=== PATIENT | female | born 1950 | race Caucasian/White ===

== ENCOUNTER 2021-01-22 18:19 | Inpatient (IN) | payer MEDICARE, SELFPAY ==
[2021-01-22] MEDS ORDERED: Ventolin HFA Inhaler 60 PUFF INHALER ONE (18:48)
[2021-01-22 19:14] LABS: #Monocytes 1.2 10x3/uL (0.0-1.1); #Neutrophils 11.1 10x3/uL (1.5-8.4); %Basophils 0.3 % (0.0-2.0); %Eosinophils 0.1 % (0.0-6.0); %Lymphocytes 3.8 % (18.0-47.0); %Monocytes 9.6 % (0.0-10.0); %Neutrophils 85.2 % (40.0-75.0); Hemoglobin 10.6 g/dL (12.0-15.5); Mean Corpuscular Hemoglobin 30.5 pg (27.0-33.0); Mean Corpuscular Volume 87.1 fl (81.6-98.3); Mean Platelet Volume 10.9 fl (7.4-10.4); Platelet Count 200 10x3/uL (150-450); RBC Distribution Width 12.3 % (11.5-14.5); Red Blood Cell (RBC) Count 3.48 10x6/uL (3.90-5.03)
[2021-01-22 19:24] LABS: ALT (SGPT) 17 U/L (8-55); AST (SGOT) 13 U/L (5-34); Albumin 3.4 g/dL (3.4-4.8); Alkaline Phosphatase 78 U/L (40-110); Anion Gap 17 mmol/L (10-20); BUN (Urea Nitrogen) 21 mg/dL (9.8-20.1); Bilirubin, Total 0.4 mg/dL (0.2-1.2); Calc. Creatinine Clearance 0 mL/min (70-130); Calcium 9.4 mg/dL (7.8-10.44); Carbon Dioxide 21 mmol/L (23-31); Chloride 96 mmol/L (98-107); Globulin 3.8 g/dL (2.4-3.5); Glucose 519 mg/dL (80-115); Potassium 4.6 mmol/L (3.5-5.1); Protein, Total 7.2 g/dL (5.8-8.1); Sodium 129 mmol/L (136-145)
[2021-01-22] MEDS ORDERED: Ketorolac Tromethamine 30 MG/ML VIAL ONE (19:55)
[2021-01-22] MEDS ORDERED: Ondansetron PF 4 MG/2 ML Vial ONE (19:56)
[2021-01-22] MEDS ORDERED: Insulin Regular 300 UNITS/3 ML VIAL ONE (20:24)
[2021-01-22 20:28] LABS: Bilirubin Neg (Negative); Blood, Urine 50 (Negative); Clarity Cloudy (Clear); Glucose, Urine (Dipstick) >=1000 mg/dL (Negative); Ketone, Urine 15 mg/dL (Negative); Leukocyte 100 (Negative); Nitrite Negative (Negative); Protein, Urine (Dipstick) 30 mg/dl (Neg-Trace); Urobilinogen Normal mg/dL (Less than 2)
[2021-01-22 20:32] LABS: Critical Notified Time 2025; Critical Notified Whom: MD; Puncture Site Other Site; pH (venous) 7.48 (7.32-7.43)
[2021-01-22 20:33] LABS: Actual Bicarbonate (HCO3v) 24 mEq/L (22-28); Base Excess 0.8 mEq/L (-2.0 to +3.0)
[2021-01-22 20:34] LABS: Calcium, Ionized (venous) 1.07 mmol/L (1.16-1.32); Chloride (VBG) 97 mmol/L (98-106); Potassium (VBG) 4.46 mmol/L (3.70-5.30); RapidComm Collect By LAB; Sodium 129.6 mmol/L (133-146)
[2021-01-22 20:44] LABS: Bacteria/HPF 3+ HPF (None Seen); Squamous Epithelial 0-3 HPF (0-3); WBC/HPF Greater Than 50 HPF (0-3)
[2021-01-22] MEDS ORDERED: Dextrose 5% in Water 1,000 ML IV PRN (21:11)
[2021-01-22] MEDS ORDERED: Dextrose 50% Abboject 50 ML SYRINGE SLOW IVP PRN (21:11)
[2021-01-22] MEDS ORDERED: cefTRIAXone\\ROCEPHIN 1 GM VIAL ONE (21:12)
[2021-01-22] MEDS ORDERED: hydrALAZINE 20 MG/ML VIAL SLOW IVP PRN (21:15)
[2021-01-22] MEDS ORDERED: Sodium Chloride 0.9% 1,000 ML IV SCH (21:15)
[2021-01-22 22:08] LABS: Anion Gap 15 mmol/L (10-20); BUN (Urea Nitrogen) 20 mg/dL (9.8-20.1); Calc. Creatinine Clearance 0 mL/min (70-130); Carbon Dioxide 20 mmol/L (23-31); Chloride 100 mmol/L (98-107); Glucose 436 mg/dL (80-115); Lipase 20 U/L (8-78); Potassium 4.1 mmol/L (3.5-5.1); Sodium 131 mmol/L (136-145)
[2021-01-22 22:59] LABS: SARS-CoV-2 NAA Rapid Test Not Detected (NotDetected)
[2021-01-22] MEDS ORDERED: Lantus 1000 UNITS/10 ML VIAL SC SCH (23:59)
[2021-01-23 00:34] VITALS: BMI 27.4
[2021-01-23] MEDS ORDERED: Ondansetron PF 4 MG/2 ML Vial ONE (01:08)
[2021-01-23] MEDS: Ondansetron PF 4 MG/2 ML Vial IVP PRN ×2 (01:10→10:29)
[2021-01-23 05:31] LABS: ALT (SGPT) 13 U/L (8-55); AST (SGOT) 13 U/L (5-34); Albumin 3.2 g/dL (3.4-4.8); Alkaline Phosphatase 71 U/L (40-110); Anion Gap 13 mmol/L (10-20); BUN (Urea Nitrogen) 15 mg/dL (9.8-20.1); Bilirubin, Total 0.3 mg/dL (0.2-1.2); Calc. Creatinine Clearance 55 mL/min (70-130); Calcium 9.1 mg/dL (7.8-10.44); Carbon Dioxide 20 mmol/L (23-31); Chloride 103 mmol/L (98-107); Globulin 3.6 g/dL (2.4-3.5); Glucose 275 mg/dL (80-115); Magnesium 1.6 mg/dL (1.6-2.6); Potassium 4.2 mmol/L (3.5-5.1); Protein, Total 6.8 g/dL (5.8-8.1); Sodium 132 mmol/L (136-145)
[2021-01-23] MEDS ORDERED: Levothyroxine Sodium 75 MCG TAB PO SCH (06:00)
[2021-01-23 06:17] LABS: #Monocytes 0.9 10x3/uL (0.0-1.1); #Neutrophils 9.1 10x3/uL (1.5-8.4); %Basophils 0.3 % (0.0-2.0); %Eosinophils 0.2 % (0.0-6.0); %Lymphocytes 5.9 % (18.0-47.0); %Monocytes 8.2 % (0.0-10.0); %Neutrophils 84.4 % (40.0-75.0); Hemoglobin 10.4 g/dL (12.0-15.5); Mean Corpuscular HGB CONC 34.2 g/dL (32.0-36.0); Mean Corpuscular Hemoglobin 30.2 pg (27.0-33.0); Mean Corpuscular Volume 88.4 fl (81.6-98.3); Mean Platelet Volume 10.8 fl (7.4-10.4); Platelet Count 201 10x3/uL (150-450); RBC Distribution Width 12.4 % (11.5-14.5); Red Blood Cell (RBC) Count 3.44 10x6/uL (3.90-5.03); White Blood Cell (WBC) Count 10.7 10x3/uL (3.5-10.5)
[2021-01-23 06:19] LABS: MDiff Complete? YES; Platelet Morphology Comment Appears Adequate; RBC Morphology Normal
[2021-01-23] MEDS: Enoxaparin Sodium 40 MG/0.4 ML SYRINGE SC SCH (10:23)
[2021-01-23] MEDS: Carvedilol 12.5 MG TAB PO SCH (10:24)
[2021-01-23] MEDS: Sodium Chloride 0.9% 1,000 ML IV SCH ×3 (10:24→21:43)
[2021-01-23] MEDS: Lantus 1000 UNITS/10 ML VIAL SC SCH ×2 (10:25→21:45)
[2021-01-23] MEDS: Aspirin 81 mg Enteric Coated Tablet PO SCH (10:25)
[2021-01-23 11:39] LABS: Hemoglobin A1c 7.8 % (4.0-6.0)
[2021-01-23] MEDS: HumaLOG 300 UNITS/3 ML VIAL SC PRN ×2 (11:41→19:19)
[2021-01-23 20:16] LABS: #Monocytes 0.7 10x3/uL (0.0-1.1); #Neutrophils 7.9 10x3/uL (1.5-8.4); %Basophils 0.2 % (0.0-2.0); %Eosinophils 0.4 % (0.0-6.0); %Lymphocytes 6.7 % (18.0-47.0); %Monocytes 7.4 % (0.0-10.0); %Neutrophils 84.6 % (40.0-75.0); Hemoglobin 9.3 g/dL (12.0-15.5); Mean Corpuscular HGB CONC 34.2 g/dL (32.0-36.0); Mean Corpuscular Hemoglobin 30.5 pg (27.0-33.0); Mean Corpuscular Volume 89.2 fl (81.6-98.3); Mean Platelet Volume 10.6 fl (7.4-10.4); Platelet Count 187 10x3/uL (150-450); RBC Distribution Width 12.3 % (11.5-14.5); Red Blood Cell (RBC) Count 3.05 10x6/uL (3.90-5.03); White Blood Cell (WBC) Count 9.3 10x3/uL (3.5-10.5)
[2021-01-23] MEDS ORDERED: Atorvastatin Calcium 20 MG TAB PO SCH (21:00)
[2021-01-23] MEDS: carBAMazepine 200 MG TAB PO SCH (21:44)
[2021-01-23] MEDS: Ondansetron ODT 4 MG TAB PO PRN (21:44)
[2021-01-24] MEDS: Acetaminophen 325 MG TAB PO PRN ×2 (01:55→16:47)
[2021-01-24 05:08] LABS: #Monocytes 0.6 10x3/uL (0.0-1.1); #Neutrophils 7.1 10x3/uL (1.5-8.4); %Basophils 0.3 % (0.0-2.0); %Eosinophils 0.3 % (0.0-6.0); %Lymphocytes 8.4 % (18.0-47.0); %Monocytes 7.3 % (0.0-10.0); %Neutrophils 82.9 % (40.0-75.0); Mean Corpuscular HGB CONC 34.9 g/dL (32.0-36.0); Mean Corpuscular Hemoglobin 30.6 pg (27.0-33.0); Mean Corpuscular Volume 87.8 fl (81.6-98.3); Mean Platelet Volume 10.8 fl (7.4-10.4); Platelet Count 208 10x3/uL (150-450); RBC Distribution Width 12.4 % (11.5-14.5); Red Blood Cell (RBC) Count 2.94 10x6/uL (3.90-5.03); White Blood Cell (WBC) Count 8.6 10x3/uL (3.5-10.5)
[2021-01-24 05:14] LABS: Anion Gap 12 mmol/L (10-20); BUN (Urea Nitrogen) 10 mg/dL (9.8-20.1); Calc. Creatinine Clearance 65 mL/min (70-130); Calcium 8.8 mg/dL (7.8-10.44); Carbon Dioxide 21 mmol/L (23-31); Chloride 107 mmol/L (98-107); Glucose 116 mg/dL (80-115); Magnesium 1.8 mg/dL (1.6-2.6); Potassium 3.6 mmol/L (3.5-5.1); Sodium 136 mmol/L (136-145)
[2021-01-24] MEDS: Levothyroxine Sodium 75 MCG TAB PO SCH (05:19)
[2021-01-24] MEDS: Ondansetron ODT 4 MG TAB PO PRN ×2 (06:51→13:43)
[2021-01-24] MEDS: Aspirin 81 mg Enteric Coated Tablet PO SCH (08:35)
[2021-01-24] MEDS: carBAMazepine 200 MG TAB PO SCH ×2 (08:36→20:27)
[2021-01-24] MEDS: Carvedilol 12.5 MG TAB PO SCH ×3 (08:36→17:35)
[2021-01-24] MEDS: Enoxaparin Sodium 40 MG/0.4 ML SYRINGE SC SCH (08:37)
[2021-01-24] MEDS: Rosuvastatin 10 MG TAB PO SCH (08:37)
[2021-01-24] MEDS: Amlodipine 10 MG TAB PO SCH (08:40)
[2021-01-24] MEDS: HYDROcodone/Acetaminophen 5/325 mg Tablet PO PRN (08:57)
[2021-01-24] MEDS: Liothyronine Sodium 5 MCG TAB PO SCH (08:59)
[2021-01-24] MEDS ORDERED: Carvedilol 25 MG TAB PO SCH (09:00)
[2021-01-24] MEDS ORDERED: Docusate 100 MG CAP PO PRN (09:32)
[2021-01-24] MEDS: Lantus 1000 UNITS/10 ML VIAL SC SCH ×2 (11:40→20:30)
[2021-01-24] MEDS: Sodium Chloride 0.9% 1,000 ML IV SCH ×3 (13:21→23:51)
[2021-01-24] MEDS: HumaLOG 300 UNITS/3 ML VIAL SC PRN (16:48)
[2021-01-24] MEDS: Mag-Al Plus 1200 MG/1200 MG/120 MG/30 ML UDCUP PO PRN (20:27)
[2021-01-25] MEDS: Mag-Al Plus 1200 MG/1200 MG/120 MG/30 ML UDCUP PO PRN (03:08)
[2021-01-25] MEDS: Levothyroxine Sodium 75 MCG TAB PO SCH (05:31)
[2021-01-25 06:16] LABS: #Monocytes 0.5 10x3/uL (0.0-1.1); #Neutrophils 8.2 10x3/uL (1.5-8.4); %Basophils 0.3 % (0.0-2.0); %Eosinophils 0.2 % (0.0-6.0); %Lymphocytes 6.5 % (18.0-47.0); %Monocytes 5.4 % (0.0-10.0); %Neutrophils 86.8 % (40.0-75.0); Hemoglobin 9.8 g/dL (12.0-15.5); Mean Corpuscular HGB CONC 34.4 g/dL (32.0-36.0); Mean Corpuscular Hemoglobin 30.2 pg (27.0-33.0); Mean Corpuscular Volume 87.7 fl (81.6-98.3); Mean Platelet Volume 10.2 fl (7.4-10.4); Platelet Count 190 10x3/uL (150-450); RBC Distribution Width 12.5 % (11.5-14.5); Red Blood Cell (RBC) Count 3.25 10x6/uL (3.90-5.03); White Blood Cell (WBC) Count 9.5 10x3/uL (3.5-10.5)
[2021-01-25 06:17] LABS: Anion Gap 13 mmol/L (10-20); BUN (Urea Nitrogen) 9 mg/dL (9.8-20.1); Calc. Creatinine Clearance 64 mL/min (70-130); Calcium 9.1 mg/dL (7.8-10.44); Carbon Dioxide 21 mmol/L (23-31); Chloride 105 mmol/L (98-107); Glucose 208 mg/dL (80-115); Potassium 4.1 mmol/L (3.5-5.1); Sodium 135 mmol/L (136-145)
[2021-01-25] MEDS: Sodium Chloride 0.9% 1,000 ML IV SCH ×2 (07:35→16:21)
[2021-01-25] MEDS: Lantus 1000 UNITS/10 ML VIAL SC SCH ×2 (09:41→22:23)
[2021-01-25] MEDS: Losartan Potassium 50 MG TAB PO SCH ×2 (09:42→21:58)
[2021-01-25] MEDS: Carvedilol 12.5 MG TAB PO SCH ×2 (09:42→17:35)
[2021-01-25] MEDS: carBAMazepine 200 MG TAB PO SCH ×2 (09:42→21:58)
[2021-01-25] MEDS: Enoxaparin Sodium 40 MG/0.4 ML SYRINGE SC SCH (09:42)
[2021-01-25] MEDS: Liothyronine Sodium 5 MCG TAB PO SCH (09:42)
[2021-01-25] MEDS: Amlodipine 10 MG TAB PO SCH ×2 (09:42→17:45)
[2021-01-25] MEDS: Aspirin 81 mg Enteric Coated Tablet PO SCH (09:42)
[2021-01-25] MEDS: Rosuvastatin 10 MG TAB PO SCH (09:42)
[2021-01-25] MEDS: Polyethylene Glycol 3350 17 GM Packet PO SCH ×2 (09:43→10:58)
[2021-01-25] MEDS ORDERED: Senokot 8.6 MG TAB PO PRN (13:42)
[2021-01-25] MEDS ORDERED: MEROPENEM 1 GM/50 ML 1 GM in Premix Bag 1 BAG IVPB ONE (17:00)
[2021-01-25] MEDS ORDERED: Meropenem 1 GM in Sodium Chloride 0.9% 100 ML IVPB ONE (17:00)
[2021-01-25] MEDS: HumaLOG 300 UNITS/3 ML VIAL SC PRN (17:58)
[2021-01-25] MEDS: Pantoprazole 40 MG VIAL IVP SCH (22:06)
[2021-01-26] MEDS: Amlodipine 10 MG TAB PO SCH ×2 (00:57→22:12)
[2021-01-26] MEDS: MEROPENEM 1 GM/50 ML 1 GM in Premix Bag 1 BAG IVPB SCH ×4 (00:58→23:58)
[2021-01-26] MEDS ORDERED: Meropenem 1 GM in Sodium Chloride 0.9% 100 ML IVPB SCH (01:00)
[2021-01-26 04:51] LABS: #Monocytes 0.8 10x3/uL (0.0-1.1); #Neutrophils 7.5 10x3/uL (1.5-8.4); %Basophils 0.3 % (0.0-2.0); %Eosinophils 0.2 % (0.0-6.0); %Lymphocytes 9.7 % (18.0-47.0); %Monocytes 8.5 % (0.0-10.0); %Neutrophils 80.4 % (40.0-75.0); Hemoglobin 9.7 g/dL (12.0-15.5); Mean Corpuscular HGB CONC 34.5 g/dL (32.0-36.0); Mean Corpuscular Hemoglobin 30.4 pg (27.0-33.0); Mean Corpuscular Volume 88.1 fl (81.6-98.3); Mean Platelet Volume 10.4 fl (7.4-10.4); Platelet Count 201 10x3/uL (150-450); RBC Distribution Width 12.5 % (11.5-14.5); Red Blood Cell (RBC) Count 3.19 10x6/uL (3.90-5.03); White Blood Cell (WBC) Count 9.4 10x3/uL (3.5-10.5)
[2021-01-26 05:12] LABS: Anion Gap 13 mmol/L (10-20); BUN (Urea Nitrogen) 11 mg/dL (9.8-20.1); Calc. Creatinine Clearance 66 mL/min (70-130); Calcium 9.2 mg/dL (7.8-10.44); Carbon Dioxide 22 mmol/L (23-31); Chloride 104 mmol/L (98-107); Glucose 193 mg/dL (80-115); Potassium 3.8 mmol/L (3.5-5.1); Sodium 135 mmol/L (136-145)
[2021-01-26] MEDS: Sodium Chloride 0.9% 1,000 ML IV SCH ×2 (05:19→16:56)
[2021-01-26] MEDS: Levothyroxine Sodium 75 MCG TAB PO SCH (05:51)
[2021-01-26] MEDS ORDERED: MEROPENEM 1 GM/50 ML BAG ONE (08:35)
[2021-01-26] MEDS: Carvedilol 12.5 MG TAB PO SCH ×2 (08:57→16:54)
[2021-01-26] MEDS: Aspirin 81 mg Enteric Coated Tablet PO SCH (08:57)
[2021-01-26] MEDS: Liothyronine Sodium 5 MCG TAB PO SCH (08:58)
[2021-01-26] MEDS: carBAMazepine 200 MG TAB PO SCH ×2 (08:58→22:12)
[2021-01-26] MEDS: Losartan Potassium 50 MG TAB PO SCH ×2 (08:58→22:13)
[2021-01-26] MEDS: Enoxaparin Sodium 40 MG/0.4 ML SYRINGE SC SCH (08:59)
[2021-01-26] MEDS: Pantoprazole 40 MG VIAL IVP SCH ×2 (09:00→22:06)
[2021-01-26] MEDS: Polyethylene Glycol 3350 17 GM Packet PO SCH (09:01)
[2021-01-26] MEDS: Rosuvastatin 10 MG TAB PO SCH (09:01)
[2021-01-26] MEDS: Lantus 1000 UNITS/10 ML VIAL SC SCH ×2 (09:10→22:06)
[2021-01-26] MEDS: HumaLOG 300 UNITS/3 ML VIAL SC PRN ×2 (12:26→16:54)
[2021-01-26] MEDS: Acetaminophen 325 MG TAB PO PRN (18:29)
[2021-01-27] MEDS: Levothyroxine Sodium 75 MCG TAB PO SCH (04:54)
[2021-01-27] MEDS: Sodium Chloride 0.9% 1,000 ML IV SCH (04:56)
[2021-01-27] MEDS: Carvedilol 12.5 MG TAB PO SCH ×2 (09:07→17:35)
[2021-01-27] MEDS: Liothyronine Sodium 5 MCG TAB PO SCH (09:07)
[2021-01-27] MEDS: Losartan Potassium 50 MG TAB PO SCH (09:07)
[2021-01-27] MEDS: Aspirin 81 mg Enteric Coated Tablet PO SCH (09:07)
[2021-01-27] MEDS: carBAMazepine 200 MG TAB PO SCH (09:07)
[2021-01-27] MEDS: Lantus 1000 UNITS/10 ML VIAL SC SCH (09:08)
[2021-01-27] MEDS: Enoxaparin Sodium 40 MG/0.4 ML SYRINGE SC SCH (09:08)
[2021-01-27] MEDS: Pantoprazole 40 MG VIAL IVP SCH (09:08)
[2021-01-27] MEDS: Rosuvastatin 10 MG TAB PO SCH (09:08)
[2021-01-27] MEDS: MEROPENEM 1 GM/50 ML 1 GM in Premix Bag 1 BAG IVPB SCH ×2 (09:08→17:35)
[2021-01-27] MEDS: Polyethylene Glycol 3350 17 GM Packet PO SCH (09:09)
[2021-01-27] MEDS ORDERED: Lidocaine 1% PF 5 ML VIAL ONE (11:34)
[2021-01-27] MEDS ORDERED: Sodium Bicarbonate 2.5 MEQ/5 ML VIAL ONE (11:34)
[2021-01-27] MEDS: HYDROcodone/Acetaminophen 5/325 mg Tablet PO PRN (13:44)
[2021-01-27] MEDS: HumaLOG 300 UNITS/3 ML VIAL SC PRN ×2 (13:44→17:35)
[2021-01-27 16:43] VITALS: BP 157/76; TEMP 98.5
== END 2021-01-27 19:45 | DRG 689 ==
LOC: CSHERS 18:19 → CSHERHOLD 01-23 00:09 → CSHTELE 01-23 08:40
PROVIDERS: ADMIT Internal Medicine; ATTEND Internal Medicine
PROC: 02HV33Z Insertion of Infusion Device into Superior Vena Cava, Percutaneous Approach (ICD-10-PCS; principal; 2021-01-27)
PROC: B5181ZA Fluoroscopy of Superior Vena Cava using Low Osmolar Contrast, Guidance (ICD-10-PCS; 2021-01-27)
DX: N39.0 Urinary tract infection, site not specified (principal); E11.10 Type 2 diabetes mellitus with ketoacidosis without coma; N17.9 Acute kidney failure, unspecified; E87.1 Hypo-osmolality and hyponatremia; Z79.4 Long term (current) use of insulin; I25.10 Atherosclerotic heart disease of native coronary artery without angina pectoris; Z95.5 Presence of coronary angioplasty implant and graft; E03.9 Hypothyroidism, unspecified; G40.909 Epilepsy, unspecified, not intractable, without status epilepticus; E78.5 Hyperlipidemia, unspecified; B96.20 Unspecified Escherichia coli [E. coli] as the cause of diseases classified elsewhere; I10 Essential (primary) hypertension; Z91.81 History of falling; Z20.822 Contact with and (suspected) exposure to COVID-19
CPT/HCPCS: 0240U; 36415; 36416; 36569; 51701; 71045; 76770; 80048; 80053; 81003; 81015; 82010; 82805; 83036; 83690; 83735; 84484; 85025; 87077; 87086; 87186; 93005; 94664; 94760; 96374; 96375; C1751; C9113; J0696; J1650; J1815; J1885; J1956; J2185; J2405; J7050; Q0162